=== PATIENT | female | born 1965 | race Caucasian/White ===

== ENCOUNTER 2016-10-30 17:52 | Emergency (ER) | payer OTHER ==
[2016-10-30 18:04] VITALS: BP 163/108
--- NOTE | 2016-10-30 18:14 | ERNOTE ---
Upper Extremity HPI - Narrative Date of Service: 10/30/16 - General Extremities Pain Location: shoulder: right, arm: right, elbow: right Time Seen by Provider: 10/30/16 18:09 Source: patient - Immun/Allergies/Home Medications Immunizations: IMMUNIZATION HX Immunizations Up to Date No History of Influenza Vaccine No Hx Pneumococcal Vaccination No Allergies/Adverse Reactions: Allergies Allergy/AdvReac Type Severity Reaction Status Date / Time codeine Allergy Verified 10/30/16 18:04 morphine Allergy Verified 10/30/16 18:04 Home Medications: HOME MEDICATIONS Ibuprofen [Motrin] 600 mg PO TID PRN #30 tab 10/30/16 [Last Taken Unknown] Metaxalone [Skelaxin] 800 mg PO TID #15 tablet 10/30/16 [Last Taken Unknown] - History of Present Illness Narrative: PT C/O RIGHT ARM PAIN AND SWELLING EVER SINCE PRACTICING SOME RESTRAINING HOLDS AT A WORK TRAINING EXERCISE TWO DAYS AGO. SHE THINKS THE RN TRIAGE WS A LITTLE TOO ROUGH. THE FIRST DAYS SHE USED ICE ALTERNATING WITH HEAT BUT NOTHING TODAY SHE WAS AT WORK . BECAUSE IT WAS A WORKMAN COMP INJURY SHE WS TOLD TO COME GET CHECKED. SHE IS NOT ON ANY MEDS. NO HISTORY OF PRIOR SHOULDER/ELBOW INJURY. SHE IS RIGHT HANDED. Review of Systems - Review of Systems Constitutional: Present: See HPI Musculoskeletal: Present: muscle pain, muscle stiffness, joint pain Skin: Present: no symptoms reported All Other Systems: All systems neg except as marked - Patient's Past Medical History Patient History - Medical: No pertinent hx, Obesity Patient History - Cardiac/Respiratory: Asthma Patient History - Cancer: No Hx of Cancer Patient History - Surgical Procedures: , Hernia Repair Patient History - Other: None - Social History Living Situations: home Psych History: No pertinent hx Smoking Status: Current every day smoker Have you smoked in the past 12 months: Yes Alcohol Use: none Drug Use: none - Immunizations Immunizations Up to Date: No Hx Pneumococcal Vaccination: No History of Influenza Vaccine: No Physical Exam - Physical Exam General Appearance: Present: wd/wn, alert, no apparent distress Extremity Exam: Present: normal inspection, no edema, decreased range of motion - HURTS TO LIFT RIGHT SHOULDER ABOVE HORIZONTAL. SHE HAS NO GROSS SWELLING OR DEFORMITY NOTED TO HER RIGHT UPPER EXTREMITY. SHE HAS GOOD HAND TECHNICAL DESIGNER AND NORMAL DISTAL REFILL AND SENSATION. TO PALPATION SHE IS MOST TENDER TO POSTERIOR ELBOW AND TRICEPS AND TO PROXIMAL DELTOID AND SUPERIOR TRAPEZIUS AREA. , other - IS IS A VERY OBESE LADY AND HAS SOME MODERATE DECONDITIONING BUT STILL IS STRONG. . Absent: joint redness, joint swelling, extremity edema Neurological Exam: Present: alert, oriented, normal mood/affect Skin Exam: Present: normal color, warm/dry ED Progress - Vital Signs Patient's Vital Signs:: I have reviewed the patient's vital signs. Vital Signs: Vital Signs 10/30/16 17:58 Temperature 36.6 C Pulse Rate 107 H Respiratory 18 Rate Blood Pressure 163/108 O2 Sat by Pulse 96 Oximetry - X-Ray X-Ray #1 X-Ray: shoulder Interpretation: Interp. by me - UNREMARKABLE X-Ray #2 X-Ray: elbow - RIGHT = UNREMARKABLE. - Progress/Reassessment Chief Complaint: Upper Extremity Injury/Problem Departure Clinical Impression: Shoulder pain, right Qualifiers: Chronicity: acute Qualified Code(s): M25.511 - Pain in right shoulder Strain of elbow, right Qualifiers: Encounter type: initial encounter Qualified Code(s): S56.911A - Strain of unspecified muscles, fascia and tendons at forearm level, right arm, initial encounter - Departure Disposition: Home Follow Up Needed Condition: Fair Instructions: Muscle Strain, [id number] Additional Instructions: GENTLE ACTIVITY, MEDICATION DIRECTED, TRIAL OF BIO-FREEZE OR PERFORM TO SORE AREA FOR COMFORT AND USING HEAT FOR COMFORT WHEN ABLE . GRADUALLY INCREASE YOUR ACTIVITY LETTING THE DISCOMFORT BE YOUR GUIDE TO WHEN YOU ARE DOING TOO MUCH. IF NOT IMPROVING WITH TIME YOU MAY NEED TO GET PHYSICAL THERAPY. Prescriptions: Ibuprofen [Motrin] 600 mg PO TID PRN #30 tab PRN Reason: Pain Metaxalone [Skelaxin] 800 mg PO TID #15 tablet
== END 2016-10-30 19:05 | disposition home or self-care (01) ==
LOC: ER 17:52
DX: M25.511 Pain in right shoulder (principal); S56.911A Strain of unspecified muscles, fascia and tendons at forearm level, right arm, initial encounter; Z72.0 Tobacco use; X58.XXXA Exposure to other specified factors, initial encounter; Y93.89 Activity, other specified; Y92.9 Unspecified place or not applicable; Y99.0 Civilian activity done for income or pay